=== PATIENT | female | born 1990 | race Caucasian/White ===

== ENCOUNTER 2017-09-09 22:02 | Emergency (ER) | payer MEDICAID ==
[~2017-09-09] VITALS: Ht 172.7 cm; Wt 80.2 kg
[2017-09-09 22:58] VITALS: BP 105/69
== END 2017-09-09 23:00 | disposition home or self-care (01) ==
LOC: ER 22:03
DX: R07.89 Other chest pain (principal); R06.02 Shortness of breath; R11.0 Nausea
CPT/HCPCS: 71045; 93005; 99284